=== PATIENT | male | born 1995 | race African-American/Black ===

== ENCOUNTER 2019-06-12 18:57 | Emergency (ER) | payer OTHER ==
[~2019-06-12] VITALS: Ht 182.9 cm; Wt 83.9 kg
[2019-06-12 19:23] VITALS: BP 113/47
[2019-06-12] MEDS ORDERED: IV NORMAL SALINE 1,000ML 1,000 ML IV ONE (19:30)
[2019-06-12] MEDS ORDERED: METOCLOPRAMIDE HCL 10 MG/2 ML VIAL. IVP ONE (19:45)
[2019-06-12] MEDS ORDERED: diphenhydrAMINE 50 MG/ML VIAL IVP ONE (19:45)
[2019-06-12] MEDS ORDERED: KETOROLAC 15 MG/ML VIAL. IVP ONE (19:45)
[2019-06-12] MEDS ORDERED: DEXAMETHASONE SOD PHOS 10 MG/ML VIAL IV ONE (19:45)
--- NOTE | 2019-06-12 20:01 | PHYS DOC ---
Past History Past Medical History: Seizure Past Surgical History: No Surgical History Smoking: Non-smoker Alcohol Use: Occasionally Drug Use: Marijuana Adult General Chief Complaint Chief Complaint: HEADACHE HPI HPI Mr. Butcher is a 24yo M w/ PMH significant for seizures presents following 2 episodes of breakthrough seizures today. The first occurred inflight at 11:30am, lasted 50 seconds, with a 5-10min post-ictal state described as "decreased alertness." Second episode occurred at 6pm tonight, lasted 80 seconds, with a 20min post-ictal state. Patient last experienced a seizure 2 months ago. Takes Depakote every night with last dose before bed last night; has not taken tonight's dose yet. No recent medication changes. Reports headache, nausea, and sensitivity to light. Denies vomiting. Review of Systems Review of Systems Constitutional: Denies fever or chills Eyes: Denies redness or eye pain; reports photophobia HENT: Denies nasal congestion or sore throat Respiratory: Denies cough or shortness of breath Cardiovascular: Denies chest pain or palpitations GI: Reports nausea. Denies abdominal pain or vomiting : Denies dysuria or hematuria Musculoskeletal: Denies back pain or joint pain Integument: Denies rash or skin lesions Neurologic: Reports headache and seizure like activity. Denies focal weakness or sensory changes Complete systems were reviewed and found to be within normal limits, except as documented in this note. Current Medications Current Medications Current Medications Medications (Trade) Dose Ordered Sig/Mita Start Time Stop Time Status Last Admin Dose Admin Dexamethasone Sodium Phosphate (Decadron) 10 mg 1X ONCE 06/12/19 19:45 06/12/19 19:46 DC Diphenhydramine HCl (Benadryl) 50 mg 1X ONCE 06/12/19 19:45 06/12/19 19:46 DC Ketorolac Tromethamine (Toradol 15mg Vial) 15 mg 1X ONCE 06/12/19 19:45 06/12/19 19:46 DC Metoclopramide HCl (Reglan Vial) 10 mg 1X ONCE 06/12/19 19:45 06/12/19 19:46 DC Sodium Chloride 1,000 ml @ 1,000 mls/hr 1X ONCE 06/12/19 19:30 06/12/19 20:29 Allergies Allergies Allergies Coded Allergies Type Severity Reaction Last Updated Verified No Known Drug Allergies 06/12/19 No Physical Exam Physical Exam Constitutional: Well developed, well nourished, moderate discomfort, non-toxic appearance HENT: Normocephalic, atraumatic, oropharynx moist, TMs clear Eyes: PERRL, EOMI, conjunctiva normal, no discharge, photophobia noted Neck: Normal range of motion, no midline tenderness, supple Cardiovascular: Heart rate normal, regular rhythm Lungs & Thorax: Bilateral breath sounds clear to auscultation, no wheezing Abdomen: Soft, no tenderness Skin: Warm, dry, no erythema, no rash Extremities: No tenderness, ROM intact, no edema Neurologic: Alert and oriented X 3, normal motor function, normal sensory function, no focal deficits noted Psychologic: Affect flat, judgement normal Current Patient Data Vital Signs Vital Signs Date Time Temp Pulse Resp B/P (MAP) Pulse Ox O2 Delivery O2 Flow Rate FiO2 06/12/19 19:23 98.2 79 20 99 Room Air EKG EKG [] Radiology/Procedures Radiology/Procedures PROCEDURE: CT HEAD WO CONTRAST CT head without contrast dated 06/12/2019. No comparison available. Clinical data indication: Headache seizures. TECHNIQUE: Contiguous axial imaging the head was performed from skull base to vertex. No contrast administered. One or more of the following individualized dose reduction techniques were utilized for this examination: 1. Automated exposure control 2. Adjustment of the mA and/or kV according to patient size 3. Use of iterative reconstruction technique. FINDINGS: Ventricles and sulci are within normal limits for age. No midline shift or mass effect. Brain parenchyma is of normal attenuation. No hemorrhage or extra-axial collection. Posterior fossa and brainstem unremarkable. Visualized paranasal sinuses and mastoid air cells are clear. No apparent calvarial abnormality. IMPRESSION: No evidence of acute intracranial abnormality. Electronically signed by: Kuldip Magana MD (06/12/2019 8:50 PM) [facility] Course & Med Decision Making Course & Med Decision Making Pertinent Labs and Imaging studies reviewed. (See chart for details) Mr. Butcher presents with report of breakthrough seizures x 2. Patient c/o of headache. CT head without acute process. Labs obtained and posted to chart. WBC, CPK and lactic acid all elevated consistent for breakthrough seizure. Valproic acid level subtherapeutic. IV replacement provided. Offered admission which patient declined. Patient stable for discharge with outpatient follow-up with PCP/neurologist. Discussed findings and plan with patient and friend, who acknowledge understanding and agreement. Dragon Disclaimer Dragon Disclaimer This electronic medical record was generated, in whole or in part, using a voice recognition dictation system. Departure Departure: Impression: Primary Impression: Breakthrough seizure Additional Impressions: Lactic acidosis Headache Subtherapeutic serum dilantin level Disposition: HOME, SELF-CARE Condition: STABLE Referrals: PCP,JYOTI (PCP) HARSH PRICE MD Patient Instructions: Seizure, Adult, [id number] Additional Instructions: Please take your seizure medication as prescribed including tonight's dose. Use over the counter Tylenol and Ibuprofen for pain or discomfort. Increased fluid hydration. You must be seizure free for next 6 months or until cleared by your neurologist until you can drive a motor vehicle. Problem Qualifiers Additional Impressions: Headache Headache type: unspecified Headache chronicity pattern: acute headache Intractability: not intractable Qualified Codes: R51 - Headache KULDIP DELCID DO Jun 12, 2019 20:01
[2019-06-12 20:38] LABS: BASO % 0 % (0-3); EOS % 0 % (0-3); HEMATOCRIT 43.2 % (39.0-53.0); HEMOGLOBIN 14.3 g/dL (13.0-17.5); LYMPH # 1.6 x10^3/uL (1.0-4.8); LYMPH % 10 % (24-48); MEAN CORPUSCULAR HEMOGLOBIN 32 pg (25-35); MEAN CORPUSCULAR HGB CONC 33 g/dL (31-37); MEAN CORPUSCULAR VOLUME 95 fL (79-100); MONO % 6 % (0-9); NEUT % 84 % (31-73); PLATELET COUNT 271 x10^3/uL (140-400); RED BLOOD COUNT 4.54 x10^6/uL (4.30-5.70); RED CELL DISTRIBUTION WIDTH 13.8 % (11.5-14.5); WHITE BLOOD COUNT 16.6 x10^3/uL (4.0-11.0)
[2019-06-12 20:46] LABS: ALBUMIN 4.6 g/dL (3.4-5.0); ALBUMIN/GLOBULIN RATIO 1.2 (1.0-1.7); ALK PHOS 43 U/L (46-116); ALT (SGPT) 19 U/L (16-63); ANION GAP 12 (6-14); AST (SGOT) 20 U/L (15-37); BLOOD UREA NITROGEN 17 mg/dL (8-26); BUN/CREATININE RATIO 15 (6-20); CALCIUM 9.3 mg/dL (8.5-10.1); CARBON DIOXIDE 26 mmol/L (21-32); CHLORIDE 100 mmol/L (98-107); CREATININE 1.1 mg/dL (0.7-1.3); GFR 101.3; GLUCOSE 99 mg/dL (70-99); MAGNESIUM 1.9 mg/dL (1.8-2.4); POTASSIUM 4.2 mmol/L (3.5-5.1); SODIUM 138 mmol/L (136-145); TOTAL BILIRUBIN 0.5 mg/dL (0.2-1.0); TOTAL PROTEIN 8.4 g/dL (6.4-8.2)
--- NOTE | 2019-06-12 20:53 | RAD ---
CT head without contrast dated 06/12/2019. No comparison available. Clinical data indication: Headache seizures. TECHNIQUE: Contiguous axial imaging the head was performed from skull base to vertex. No contrast administered. One or more of the following individualized dose reduction techniques were utilized for this examination: 1. Automated exposure control 2. Adjustment of the mA and/or kV according to patient size 3. Use of iterative reconstruction technique. FINDINGS: Ventricles and sulci are within normal limits for age. No midline shift or mass effect. Brain parenchyma is of normal attenuation. No hemorrhage or extra-axial collection. Posterior fossa and brainstem unremarkable. Visualized paranasal sinuses and mastoid air cells are clear. No apparent calvarial abnormality. IMPRESSION: No evidence of acute intracranial abnormality. Electronically signed by: Kuldip Magana MD (06/12/2019 8:50 PM) [facility]
[2019-06-12 21:01] LABS: VAL ACID 44 mcg/mL (50-100)
[2019-06-12 21:19] LABS: % BANDS 5 % (0-9); % EOS 1 % (0-5); % LYMPHS 15 % (24-48); % MONOS 3 % (0-10); % SEGS 76 % (35-66); PLT ESTIMATE ADEQUATE (ADEQUATE)
[2019-06-12 21:20] LABS: TOXIC GRANULATION MOD
[2019-06-12] MEDS ORDERED: VALPROATE SODIUM 500 MG in IV NORMAL SALINE 50ML 50 ML IV ONE (21:45)
[2019-06-12] MEDS ORDERED: VALPROATE SODIUM 500 MG/5 ML VIAL IV ONE (22:06)
[2019-06-12] MEDS ORDERED: IV NORMAL SALINE 50ML 50 ML ONE (22:06)
== END 2019-06-12 23:15 | disposition home or self-care (01) ==
LOC: ER 18:57
DX: G40.89 Other seizures (principal); E87.2 Acidosis; R51 Headache; R89.2 Abnormal level of other drugs, medicaments and biological substances in specimens from other organs, systems and tissues
CPT/HCPCS: 36415; 70450; 80053; 80164; 82550; 83605; 83735; 85007; 85025; 96365; 96375; 99285; J1100; J1200; J1885; J2765; J3490; J7030

== ENCOUNTER 2019-11-18 21:30 | Emergency (ER) | payer OTHER ==
[~2019-11-18] VITALS: Ht 175.3 cm; Wt 90.1 kg
[2019-11-18 21:30] VITALS: BP 122/87
--- NOTE | 2019-11-18 21:38 | PHYS DOC ---
Past History Past Medical History: Seizure Past Surgical History: No Surgical History Smoking: Non-smoker Alcohol Use: Occasionally Drug Use: Marijuana General Adult HPI: HPI: Patient is a 24 year old male who presents with hx of recurrent seizures x 3 today. Pt. hit his Rt. forehead with last absence seizure. Pt. states he been taking his Depakote 500 twice a day. Pt. absence seizures and had tonic/clonic seizure at 1500, 1600, 2030 hrs. Thee patient does admit to use of alcohol yesterday. Patient occasionally has breakthrough seizures in spite of his use of Depakote. No recent travel outside the [place] area. No specific ill contacts. Review of Systems: Review of Systems: Constitutional: Denies fever or chills Eyes: Denies change in visual acuity HENT: Denies nasal congestion or sore throat Respiratory: Denies cough or shortness of breath Cardiovascular: Denies chest pain or edema GI: Denies abdominal pain, , vomiting, bloody stools or diarrhea . Complains of nausea : Denies dysuria Musculoskeletal: Denies back pain or joint pain Integument: Denies rash Neurologic: Complains of s headache at site of contusion,. Denies focal weakness or sensory changes. Complaints of tonic-clonic seizures Endocrine: Denies polyuria or polydipsia Lymphatic: Denies swollen glands Psychiatric: Denies depression or anxiety Heart Score: Risk Factors: Risk Factors: DM, Current or recent (<one month) smoker, HTN, HLP, family history of CAD, obesity. Risk Scores: Score 0 - 3: 2.5% MACE over next 6 weeks - Discharge Home Score 4 - 6: 20.3% MACE over next 6 weeks - Admit for Clinical Observation Score 7 - 10: 72.7% MACE over next 6 weeks - Early Invasive Strategies Family History: Family History: Noncontributory Current Medications: Current Meds: See nursing for home meds Allergies: Allergies: Allergies Coded Allergies Type Severity Reaction Last Updated Verified No Known Drug Allergies 06/12/19 No Physical Exam: PE: Constitutional: Well developed, well nourished, no acute distress, non-toxic appearance. [] HENT: Normocephalic, contusion right forehead, bilateral external ears normal, oropharynx moist, no oral exudates, nose normal. [] Eyes: PERRLA, EOMI, conjunctiva normal, no discharge. [] Neck: Normal range of motion, no tenderness, supple, no stridor. [] Cardiovascular: Tachycardia heart rate regular rhythm, no murmur [] Lungs & Thorax: Bilateral breath sounds equal at apex with a few scattered crackles on right lung valdez auscultation [] Abdomen: Bowel sounds normal, soft, no tenderness, no masses, no pulsatile masses. [] Skin: Warm, dry, no erythema, no rash. [] Back: No tenderness, no CVA tenderness. [] Extremities: No tenderness, no cyanosis, no clubbing, ROM intact, no edema. [] Neurologic: Alert and oriented X 3, moves all 4 extremities on request, has distals sensory, no focal deficits noted. DTRs +2 patellar brachial. Plastering Supervisor equal. No drift. Patient is however slow to respond initially as if postictal. Psychologic: Affect anxious, judgement normal, mood normal. [] EKG: EKG: My interpretation EKG shows sinus rhythm at 77 bpm. He has a mild right bundle branch block. But no findings of acute STEMI of contralateral changes. [] Radiology/Procedures: Radiology/Procedures: [][place] [id number] IMAGING REPORT Signed PATIENT: CARROLL RENNER ACCOUNT: [id number] : 1995 LOCATION: ER AGE: 24 SEX: M EXAM STATUS: REG ER ORD. PHYSICIAN: BONITA FUENTES MD REASON: Seizure, hit head PROCEDURE: CT HEAD AND CERVICAL SPINE WO Exam: CT head and cervical spine INDICATION: Seizure, hit head TECHNIQUE: Sequential axial images through the head and cervical spine were obtained without the administration of IV contrast. Comparisons: None FINDINGS: Head: No focal parenchymal lesion or hemorrhage is identified. There is no midline shift or sulcal effacement. No acute vascular territory infarction is identified. Elaine-white distinction is preserved. The ventricular system is within normal limits without compression hydrocephalus. The basal cisterns are well maintained. The visualized portions of the paranasal sinuses and mastoid air cells are well-pneumatized. No acute fractures. Cervical spine: Reversal of the normal cervical lordosis. Vertebral body heights are well-maintained. Fracture through the cervical spine is not identified. No significant spondylotic change in the cervical spine. Visualized paraspinal soft tissues are unremarkable. IMPRESSION: 1. No acute intracranial abnormality. 2. Negative CT C-spine for acute traumatic injury. Exposure: One or more of the following in the visualized dose reduction techniques were utilized for this examination: 1. Automated exposure control 2. Adjustment of the MA and/or KV according to patient size Use of iterative of reconstructive technique Electronically signed by: Christian Cee MD (11/18/2019 10:48 PM) [id number] DICTATED AND SIGNED BY: CHRISTIAN CEE MD DATE: 11/18/19 2245 CC: BONITA FUENTES MD; PCP,UNKNOWN ~ Course & Med Decision Making: Course & Med Decision Making Pertinent Labs and Imaging studies reviewed. (See chart for details) Patient to monitor for mental status changes. Patient push fluids. Patient discuss his subtherapeutic Depakote level with his primary physician may need to increase dosage. Suspect possible viral illness mild elevation white count with viral differential. Avoid travel. And meetings. Practice social distance. Push fluids avoid dehydration. Avoid alcohol usage because this will lower your seizure threshold. If active vomiting will need re exam or mental status changes-head injury precautions. Practice social distancing. Avoid travel. Avoid groups. Return if any concerns. No driving until release by primary. Impression: 1. History of tonic-clonic seizure 2. History of head contusion-right forehead 3. Mild elevation leukocytes 14.4 with viral differential 4. Elevated CK 520 5. Elevated lactic acid 4.1 6. Dehydrated 7. Subtherapeutic Depakote level =24 [] Dragon Disclaimer: Dragwesly Disclaimer: This electronic medical record was generated, in whole or in part, using a voice recognition dictation system. Departure Departure: Disposition: 01 HOME/RESIDENCE PRIOR TO ADM Condition: STABLE Referrals: PCP,NO (PCP) Suzy Disclaimer This chart was dictated in whole or in part using Voice Recognition software in a busy, high-work load, and often noisy Emergency Department environment. It may contain unintended and wholly unrecognized errors or omissions. BONITA FUENTES MD Nov 18, 2019 21:38
[2019-11-18] MEDS ORDERED: ONDANSETRON PF 4 MG/2 ML VIAL. ONE (21:43)
[2019-11-18] MEDS ORDERED: IV RINGERS SOLUTION,LACTATED 1,000 ML IV SCH (22:00)
[2019-11-18] MEDS ORDERED: ONDANSETRON PF 4 MG/2 ML VIAL. IVP ONE (22:00)
[2019-11-18 22:07] LABS: BASO % 0 % (0-3); EOS % 0 % (0-3); HEMATOCRIT 39.5 % (39.0-53.0); HEMOGLOBIN 13.6 g/dL (13.0-17.5); LYMPH # 2.3 x10^3/uL (1.0-4.8); LYMPH % 16 % (24-48); MEAN CORPUSCULAR HEMOGLOBIN 32 pg (25-35); MEAN CORPUSCULAR HGB CONC 34 g/dL (31-37); MEAN CORPUSCULAR VOLUME 93 fL (79-100); MONO # 0.8 x10^3/uL (0.0-1.1); MONO % 5 % (0-9); NEUT # 11.2 x10^3uL (1.8-7.7); NEUT % 78 % (31-73); PLATELET COUNT 258 x10^3/uL (140-400); RED BLOOD COUNT 4.25 x10^6/uL (4.30-5.70); RED CELL DISTRIBUTION WIDTH 13.2 % (11.5-14.5); WHITE BLOOD COUNT 14.4 x10^3/uL (4.0-11.0)
[2019-11-18 22:15] LABS: ANION GAP 14 (6-14); BLOOD UREA NITROGEN 18 mg/dL (8-26); CALCIUM 9.2 mg/dL (8.5-10.1); CARBON DIOXIDE 25 mmol/L (21-32); CHLORIDE 101 mmol/L (98-107); CREATININE 1.3 mg/dL (0.7-1.3); GFR 83.5; GLUCOSE 106 mg/dL (70-99); SODIUM 140 mmol/L (136-145)
[2019-11-18 22:28] LABS: ALBUMIN 4.3 g/dL (3.4-5.0); ALK PHOS 42 U/L (46-116); ALT (SGPT) 20 U/L (16-63); AST (SGOT) 22 U/L (15-37); DIRECT BILIRUBIN 0.1 mg/dL (0.0-0.2); LIPASE 52 U/L (73-393); MAGNESIUM 2.3 mg/dL (1.8-2.4); TOTAL BILIRUBIN 0.4 mg/dL (0.2-1.0); TOTAL PROTEIN 7.9 g/dL (6.4-8.2)
[2019-11-18 22:35] LABS: VAL ACID 24 mcg/mL (50-100)
--- NOTE | 2019-11-18 22:40 | RAD ---
Exam: Chest one view INDICATION: Seizure TECHNIQUE: Frontal view of the chest Comparisons: None FINDINGS: The cardiomediastinal silhouette and pulmonary vessels are within normal limits. The lung and pleural spaces are clear. IMPRESSION: No acute cardiopulmonary process. Electronically signed by: Christian Archuleta MD (11/18/2019 10:37 PM) [id number]
--- NOTE | 2019-11-18 22:51 | RAD ---
Exam: CT head and cervical spine INDICATION: Seizure, hit head TECHNIQUE: Sequential axial images through the head and cervical spine were obtained without the administration of IV contrast. Comparisons: None FINDINGS: Head: No focal parenchymal lesion or hemorrhage is identified. There is no midline shift or sulcal effacement. No acute vascular territory infarction is identified. Elaine-white distinction is preserved. The ventricular system is within normal limits without compression hydrocephalus. The basal cisterns are well maintained. The visualized portions of the paranasal sinuses and mastoid air cells are well-pneumatized. No acute fractures. Cervical spine: Reversal of the normal cervical lordosis. Vertebral body heights are well-maintained. Fracture through the cervical spine is not identified. No significant spondylotic change in the cervical spine. Visualized paraspinal soft tissues are unremarkable. IMPRESSION: 1. No acute intracranial abnormality. 2. Negative CT C-spine for acute traumatic injury. Exposure: One or more of the following in the visualized dose reduction techniques were utilized for this examination: 1. Automated exposure control 2. Adjustment of the MA and/or KV according to patient size Use of iterative of reconstructive technique Electronically signed by: Christian Archuleta MD (11/18/2019 10:48 PM) [id number]
[2019-11-18] MEDS ORDERED: IV NORMAL SALINE 50ML 50 ML ONE (22:52)
[2019-11-18] MEDS ORDERED: VALPROATE SODIUM 500 MG/5 ML VIAL IV ONE (22:53)
[2019-11-18] MEDS ORDERED: IV RINGERS SOLUTION,LACTATED 1,000 ML IV ONE (23:00)
[2019-11-18] MEDS ORDERED: VALPROATE SODIUM 500 MG in IV NORMAL SALINE 50ML 50 ML IV ONE (23:00)
--- NOTE | 2019-11-18 23:07 | EKG ---
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
[2019-11-19] MEDS ORDERED: IV RINGERS SOLUTION,LACTATED 1,000 ML IV ONE (01:00)
[2019-11-19 01:13] LABS: BARBITURATES NEG (NEG); BENZODIAZEPINES NEG (NEG); CANNABINOIDS NEG (NEG); COCAINE NEG (NEG); METHADONE NEG (NEG); OPIATES NEG (NEG); PHENCYCLIDINE NEG (NEG)
[2019-11-19 01:16] LABS: AMPHETAMINE/METHAMPHETAMINE NEG (NEG)
[2019-11-19 01:17] LABS: BACTERIA,URINE 0 /HPF (0-FEW); BILIRUBIN,URINE NEG (NEG); CLARITY,URINE CLEAR; COLOR,URINE YELLOW; GLUCOSE,URINE NEG (NEG); NITRITE,URINE NEG (NEG); RBC,URINE 0 /HPF (0-2); UROBILINOGEN,URINE 0.2 mg/dL (0.2 mg/dL); WBC,URINE RARE /HPF (0-4)
== END 2019-11-19 02:48 | disposition home or self-care (01) ==
LOC: ER 21:30
DX: S00.83XA Contusion of other part of head, initial encounter (principal); G40.89 Other seizures; D72.828 Other elevated white blood cell count; R74.0 Nonspecific elevation of levels of transaminase and lactic acid dehydrogenase [LDH]; E86.0 Dehydration; R79.89 Other specified abnormal findings of blood chemistry; W22.8XXA Striking against or struck by other objects, initial encounter; Y93.89 Activity, other specified; Y92.89 Other specified places as the place of occurrence of the external cause; Y99.8 Other external cause status
CPT/HCPCS: 36415; 70450; 71045; 72125; 80048; 80076; 80164; 80307; 81001; 82550; 83605; 83690; 83735; 84443; 84484; 85025; 85610; 85730; 93005; 96361; 96365; 96375; 99285; G0480; J2060; J2405; J3490; J7120